=== PATIENT | female | born 1980 | race Caucasian/White ===

== ENCOUNTER 2025-06-19 06:21 | Emergency (ER) | payer BC, SELFPAY ==
[2025-06-19 06:29] VITALS: BP 148/101; PULSE 88; RESP 22; TEMP 36.7; O2SAT 100
--- NOTE | 2025-06-19 07:19 | ED.EYEPROB ---
HPI - Eye Problem General Chief complaint: Eye Problems Stated complaint: Scratched in R eye Time Seen by Provider: 06/19/25 06:59 Source: patient Mode of arrival: ambulatory Limitations: no limitations History of Present Illness HPI Narrative: this is a 45-year-old female with history of hypertension who presents to the ED for right eye pain. Patient states that she woke up this morning and her dog was apparently stretching and chemical economist to her right eye. She has had pain and blurry vision since then. Related Data Allergies Allergy/AdvReac Type Severity Reaction Status Date / Time No Known Allergies Allergy Verified 06/19/25 06:24 Review of Systems Review of Systems: Gen.: Denies fevers or chills Eyes: As per HPI ENT: Denies congestion Respiratory: Denies shortness of breath or cough CV: Denies chest pain or palpitations GI: Denies abdominal pain nausea, emesis or diarrhea denies burning, urgency, frequency or hematuria Musculoskeletal: Denies back pain or muscle pain Neuro: Denies numbness, tingling, weakness or focal weakness Skin: Denies rash Except as documented, all other systems reviewed and negative Exam Narrative: APPEARANCE: No acute distress, nontoxic, resting in bed HEENT: Normocephalic, atraumatic, OMM Eye: PERRL, EOMI. Fluorescein uptake over the right pupil consistent with a corneal abrasion RESPIRATORY: No respiratory distress CARDIOVASCULAR: Appears well perfused ABDOMINAL: Nondistended MUSCULOSKELETAl: Moves all extremities. No obvious deformities NEURO: Awake and alert. SKIN:: Warm, dry. No rashes lesions or abrasions PSYCHIATRIC: Normal affect/mood, Course Vital Signs Vital signs: Vital Signs Temperature 98.0 F 06/19/25 06:29 Pulse Rate 88 06/19/25 06:29 Respiratory Rate 22 H 06/19/25 06:29 Blood Pressure 148/101 H 06/19/25 06:29 Pulse Oximetry 100 06/19/25 06:29 Oxygen Delivery Room Air 06/19/25 06:29 Temperature 98.0 F 06/19/25 06:29 Pulse Rate 88 06/19/25 06:29 Respiratory Rate 22 H 06/19/25 06:29 Blood Pressure 148/101 H 06/19/25 06:29 Pulse Oximetry 100 06/19/25 06:29 Oxygen Delivery Room Air 06/19/25 06:29 MDM - Eye Problem MDM Narrative Medical decision making narrative: 45-year-old female Presenting for right eye pain. On initial evaluation patient was in no acute distress afebrile, hemodynamic stable. Differentials include but are not limited to: Corneal abrasion, corneal ulcer, open globe, Notable exam findings: Source seen uptake overlying the right pupil consistent with a corneal abrasion Patient does not wear contacts. She was given a prescription for erythromycin ointment. She was given referral to Ophthalmology for further evaluation. Patient was agreeable to this plan. Given strict return precautions. Discharge Plan Discharge Clinical Impression: Corneal abrasion Qualifiers: Encounter type: initial encounter Laterality: right Qualified Code(s): S05.01XA - Injury of conjunctiva and corneal abrasion without foreign body, right eye, initial encounter Patient Disposition: Home Condition: Stable Instructions: Antibiotic Form, Erythromycin (Into the eye), Corneal Abrasion (ED) Additional Instructions: Your found have a corneal abrasion. Use erythromycin ointment as prescribed. Follow-up with Ophthalmology today or on Sunday. Return to the ED for new or worsening symptoms. For pain, discomfort or temperature greater than or equal to 100.8 ?F please alternate the following 2 medications as needed. First medication- acetaminophen/Tylenol- 1000mg every 6-8 hours as needed for above indications. Second medication- ibuprofen/Motrin-600mg every 6-8 hours as needed for above indication. Patient Language: Kinyarwanda Prescriptions: New erythromycin 5 mg/gram (0.5 %) ointment 0.5 inch RIGHT EYE QID 7 Days Qty: 3.5 0RF Follow-up/Referrals: [facility] [Outside] Sarwat,Pilar Mccarthy NP [Primary Care Provider, Unknown] Stand Alone Forms: Work/School Release IP
--- OUTSIDE RECORDS SUMMARY | 2025-06-19 07:37 | XMS_ITS | Patient Health Record ---
Author Organization [facility] Address [address] [place], [place] [id number] Support Name Relationship Address Phone DIMA DUNN Emergency Contact Unknown ANMOL DUNN Guarantor Unknown [phone] Reason For Referral No Information Social History Social History Additional Details Category Social Info Options Details Migrated Social History Migrated Social History History of tobacco use : Current every day smoker , Smoking Status : Current every day smoker , Alcohol intake : Plan Of Treatment No Information Insurance Providers Payer Name Payer Address Payer Phone Subscriber Number Group Number Insured Name Patient Relationship to Insured Coverage Start Date Coverage End Date [facility] [address] [place], [place] [id number] ANMOL DUNN Self - patient is the insured
--- OUTSIDE RECORDS SUMMARY | 2025-06-19 07:37 | XMS_ITS | Clinical Summary ---
Author Organization [facility] Care Team Providers Care Lunchroom Aide Name Role Phone Unavailable Primary Care Provider Unavailabl e Social History Tobacco Use Types Packs/Day Years Used Date Smoking Tobacco: Never Assessed Comments Unknown Sex and Gender Information Value Date Recorded Sex Assigned at Not on file Legal Sex Female 8:50 AM [employer]OW[employer] MAN Gender Identity Not on file Sexual Orientation Not on file Plan of Treatment Health Maintenance Due Date Last Done Comments Hepatitis C Virus (HCV) Screening 1979 TdaP Immunization 1979 Hepatitis B Immunization (1 of 3 - 19+ 3-dose series) 1998 Pap Smear 02/02/2000 Cervical Cancer Screening (CCS) 2009 HPV/Cotest 2009 Cologuard 02/02/2024 Colonoscopy 02/02/2024 Colorectal Cancer Screening 02/02/2024 Immunochemical Fecal Occult Blood 02/02/2024 Influenza Immunization (#1) 2025 SARS-COV-2 Immunization ( season) 2025 Respiratory Syncytial Virus (RSV) Immunization (Adult) (1 - 1-dose 75+ series) 2054 Human Papillomavirus (HPV) Immunization Aged Out No longer eligible b ased on patient's age to complete this topic Meningococcal Immunization (ACWY) Aged Out No longer eligible based on patient's age to complete this topic Pneumococcal Immunization Combined Aged Out No longer eligible based on patient's age to complete this topic Rotavirus Immunization Aged Out No lo nger eligible based on patient's age to complete this topic
== END 2025-06-19 07:51 | disposition home or self-care (01) ==
PROVIDERS: Emergency Provider Student in an Organized Health Care Education/Training Program; PCP Nurse Practitioner Family
DX: S05.01XA Injury of conjunctiva and corneal abrasion without foreign body, right eye, initial encounter (principal); W54.1XXA Struck by dog, initial encounter
CPT/HCPCS: 99283; A9270